=== PATIENT | female | born 1935 | race Hispanic/Latino ===

== ENCOUNTER → 2017-12-14 | Outpatient (CLI) | payer OTHER ==
[~2017-12-14] MED LIST: AEC81 PO; ATOR10 PO; CA C-5 PO; CYAN25002 SL; HYDR12.54 PO; MULT-1258 PO
== END | disposition home or self-care (01) ==
LOC: RAH 08:24
PROVIDERS: ATTEND Internal Medicine
DX: G31.9 Degenerative disease of nervous system, unspecified (principal); G30.0 Alzheimer's disease with early onset
CPT/HCPCS: 70551

== ENCOUNTER 2019-05-11 17:44 | Observation (INO) | payer OTHER ==
[~2019-05-11] VITALS: Ht 157.5 cm; Wt 60.8 kg
[2019-05-11 19:39] LABS: BASOPHILS % (AUTO) 0.1 % (0.0-5.0); HEMATOCRIT 37.4 % (36-48); LYMPHOCYTES % (AUTO) 5.9 % (21.0-51.0); MEAN CORPUSCULAR HEMOGLOBIN 30.8 pg (27.0-33.0); MEAN CORPUSCULAR HGB CONC 33.9 g/dL (32.0-36.0); MEAN CORPUSCULAR VOLUME 90.9 fL (79-99); MONOCYTES % (AUTO) 2.7 % (3.0-13.0); NEUTROPHILS % (AUTO) 91.3 % (40.0-77.0); PLATELET COUNT (AUTO) 161 K/uL (130-400); RED BLOOD CELL COUNT(AUTO) 4.11 MIL/uL (4.00-5.50); RED CELL DISTRIBUTION WIDTH 13.1 % (11.0-15.5); WHITE BLOOD COUNT (AUTO) 13.4 K/uL (4.8-10.8)
[2019-05-11 19:46] LABS: CREATININE 1.3 mg/dL (0.5-1.5); POTASSIUM 3.9 mmol/L (3.5-5.1)
[2019-05-11 19:51] LABS: ALBUMIN 3.6 g/dL (3.5-5.0); BILIRUBIN,TOTAL 0.6 mg/dL (0.2-1.0); TOTAL PROTEIN, SERUM 6.9 g/dL (6.0-8.3)
[2019-05-11 20:00] LABS: INR 0.92 (0.85-1.15); PARTIAL THROMBOPLASTIN TIME 22.7 SEC (26.3-35.5); PROTHROMBIN TIME 9.7 SEC (9.6-11.6)
[2019-05-11] MEDS ORDERED: 1/2 NORMAL SALINE 1,000 ML IV ONE (21:07)
[2019-05-11] MEDS: 1/2 NORMAL SALINE 1,000 ML IV SCH (21:30)
[2019-05-11 23:30] VITALS: BP 155/56
--- NOTE | 2019-05-11 23:30 | NUR ---
ADMISSION PT ADMITTED INTO ROOM 409, AWAKE, ALERT AND RESPONSIVE, NO C/O PAIN OR DISTRESS NOTED. PT FAMILY AT BEDSIDE. PT AND FAMILY ORIENTED TO ROOM, CALL REVELES WITHIN REACH, BED IN LOWEST POSITION. Addendum: 05/11/19 at 2358 by MASON FERNANDEZ RN Amended: Links added.
[2019-05-12] VITALS (13 sets, daily range): BP systolic 106–144; BP diastolic 33–64
[2019-05-12 04:16] LABS: HEMATOCRIT 30.6 % (36-48)
--- NOTE | 2019-05-12 07:45 | NUR ---
NOTE AAOX3. DENIES PAIN OR DISCOMFORT AT THIS TIME. CAME IN FROM HOME YESTERDAY WITH C/O VOMITING BLOOD OR RATHER COFFEE GROUND EMESIS. DR MORRELL STILL TO COME SEE HER TODAY. SHE WILL HAVE SERIAL H/H. LAST HGB WAS IN THE 10'S. FAMILY AT HER SIDE. DENIES ANY ABDOMINAL DISCOMFORT OR PAIN SHE IS ON CLEAR LIQUIDS.
[2019-05-12] MEDS ORDERED: FAMOTIDINE/PF 20 MG/2 ML VIAL IV SCH (09:00)
[2019-05-12] MEDS ORDERED: PANTOPRAZOLE 40 MG/VIAL IVP SCH (09:00)
--- NOTE | 2019-05-12 11:30 | NUR ---
NOTE DR KEITH WAS CONSULTED AND HE CALLED AND ORDERED TO HAVE EGD WITH MAC TODAY. SHE WILL SIGN CONSENT AND MEET DR KEITH DOWNSTAIRS AND PROCEED WITH EGD. FAMILY MADE AWARE OF THIS.
[2019-05-12 11:58] LABS: HEMATOCRIT 31.8 % (36-48)
[2019-05-12] MEDS ORDERED: ERYTHROMYCIN LACTOBIONATE 250 MG in SODIUM CHLORIDE 0.9% 100 ML IV SCH (12:00)
--- NOTE | 2019-05-12 13:38 | NUR ---
OUT OF ROOM FOR EGD AT THIS TIME
[2019-05-12] MEDS ORDERED: LISI-613 PO (13:57)
[2019-05-12] MEDS ORDERED: AMLO5TAB9 PO (13:57)
[2019-05-12] MEDS ORDERED: ACET-2743 PO (13:57)
[2019-05-12] MEDS ORDERED: RIVA4.6T TD (13:57)
--- NOTE | 2019-05-12 16:14 | NUR ---
NOTE BACK FROM EGD STABLE, NO DISTRESS. REFER TO REPORT FOR FINDINGS. SON AT HER SIDE IS TELLING ME HE SPOKE TO DR KEITH AND HE FOUND ULCERS IN THE STOMACH. WILL FOLLOW POST PROCEDURE ORDERS.
[2019-05-12] MEDS: 1/2 NORMAL SALINE 1,000 ML IV SCH (17:30)
--- NOTE | 2019-05-12 18:24 | NUR ---
NOTE CAME BACK FROM EGD AND WAS STABLE FOR A WHILE BUT STARTED TO GET VERY RESTLESS IN BED AND WANTING TO GO HOME. ACCORDING TO HER DAUGHTER IN THE ROOM SHE ONLY LISTENS TO HER SON BUT HE HAS LEFT TO [place]. I SPOKE TO THE PATIENT AND CONVINCED HER THAT SHE NEEDS TO STAY THE NIGHT AND WILL HAVE BLOOD WORK TOMORROW AND POSSIBLY GO HOME IF SHE IS STABLE.
[2019-05-12] MEDS: PANTOPRAZOLE SODIUM 40 MG TABLET.DR PO SCH (20:08)
[2019-05-12 20:44] LABS: HEMATOCRIT 31.5 % (36-48)
[2019-05-13 03:30] VITALS: BP 151/69
[2019-05-13 05:41] LABS: HEMATOCRIT 31.7 % (36-48)
[2019-05-13 08:00] VITALS: BP 124/56
--- NOTE | 2019-05-13 08:00 | NUR ---
NOTE AAOX3. DENIES PAIN OR DISCOMFORT AT THIS TIME. DAUGHTER AT HER SIDE. PATIENT WITHOUT CONFUSION COMPARED TO LAST NIGHT WHEN SHE WAS VERY RESTLESS AND WANTING TO LEAVE AND KEPT WALKING OUT OF ROOM A LITTLE DISORIENTED LOOKING FOR THINGS TO DO. SHE DOES HAVE BEGINNINGS OF DEMENTIA ACCORDING TO HER FAMILY. DENIES ANY N/V AND H/H HAS REMAINED STABLE THROUGHOUT HER STAY. S/P EGD YESTERDAY WITH DR KEITH AND HE RECOMMENDS PROTONIX FOR 8 WEEKS AND FOLLOW UP WITH HIM OUTPATIENT. H PYLORI AG WAS NEGATIVE. POSSIBLE DC HOME TODAY WHEN PORSCHE STOPS BY.
--- NOTE | 2019-05-13 10:00 | NUR ---
NOTE DR MORRELL MADE ROUNDS AND HE IS SENDING PATIENT HOME TODAY.
[2019-05-13] MEDS: PANTOPRAZOLE SODIUM 40 MG TABLET.DR PO SCH (10:12)
[2019-05-13 11:00] VITALS: BP 176/68
--- NOTE | 2019-05-13 11:15 | NUR ---
NOTE DSICHARGE INSTRUCTIONS GIVEN AT THIS TIME. DAUGHTER PRESENT. BOTH VERBALIZED UNDERSTANDING AND PATIENT HAD FORGOTTEN SOME OF THE INSTRUCTIONS BUT DAUGHTER REMINDS HER ABOUT WHAT WAS DISCUSSED SINCE SHE DOES HAVE H/O DEMENTIA. REFER TO DC SUMMARY FOR DETAILS.
== END 2019-05-13 12:49 | disposition home or self-care (01) ==
LOC: EDH 17:44 → EDHIP 21:00 → 4BH 22:56
PROVIDERS: ADMIT Internal Medicine; ATTEND Internal Medicine
DX: K92.0 Hematemesis (principal); D62 Acute posthemorrhagic anemia; K25.4 Chronic or unspecified gastric ulcer with hemorrhage; I38 Endocarditis, valve unspecified; K29.60 Other gastritis without bleeding; K29.80 Duodenitis without bleeding; I10 Essential (primary) hypertension; Z95.2 Presence of prosthetic heart valve; Z79.899 Other long term (current) drug therapy; Z90.710 Acquired absence of both cervix and uterus
CPT/HCPCS: 36415 ×3; 43239; 80053; 82270; 85014 ×4; 85018 ×4; 85025; 85610; 85730; 86677; 96365; 96375; 99284; G0378 ×37; J1364; J3490; 88305; C9113

== ENCOUNTER 2019-06-24 17:57 | Emergency (ER) | payer OTHER ==
[~2019-06-24 17:57] MED LIST changes: +ACET-2743 PO; -AEC81 PO; +AMLO5TAB9 PO; +LISI-613 PO; +RIVA4.6T TD
[2019-06-24] MEDS ORDERED: SODIUM CHLORIDE 0.9% 1000ML 2,000 ML IV ONE (18:21)
[2019-06-24] MEDS ORDERED: ONDANSETRON HCL 4 MG/2 ML VIAL ONE (18:21)
[2019-06-24 18:52] LABS: BASOPHILS % (AUTO) 0.3 % (0.0-5.0); EOSINOPHILS % (AUTO) 0.1 % (0.0-8.0); HEMATOCRIT 36.6 % (36-48); LYMPHOCYTES % (AUTO) 10.5 % (21.0-51.0); MEAN CORPUSCULAR HEMOGLOBIN 29.9 pg (27.0-33.0); MEAN CORPUSCULAR HGB CONC 34.1 g/dL (32.0-36.0); MEAN CORPUSCULAR VOLUME 87.7 fL (79-99); MONOCYTES % (AUTO) 3.8 % (3.0-13.0); NEUTROPHILS % (AUTO) 85.3 % (40.0-77.0); PLATELET COUNT (AUTO) 144 K/uL (130-400); RED BLOOD CELL COUNT(AUTO) 4.17 MIL/uL (4.00-5.50); RED CELL DISTRIBUTION WIDTH 12.3 % (11.0-15.5)
[2019-06-24 19:03] LABS: CREATININE 1.7 mg/dL (0.5-1.5); POTASSIUM 3.2 mmol/L (3.5-5.1)
[2019-06-24 19:08] LABS: ALBUMIN 3.9 g/dL (3.5-5.0); BILIRUBIN,TOTAL 1.3 mg/dL (0.2-1.0); TOTAL PROTEIN, SERUM 7.2 g/dL (6.0-8.3)
== END 2019-06-24 20:48 | disposition home or self-care (01) ==
LOC: EDH 17:57
DX: R11.2 Nausea with vomiting, unspecified (principal); I10 Essential (primary) hypertension; G30.9 Alzheimer's disease, unspecified; Z90.710 Acquired absence of both cervix and uterus
CPT/HCPCS: 36415; 71045; 80053; 83690; 84484; 85025; 93005; 96361; 96374; 99284; J2405; J7030

== ENCOUNTER 2019-07-01 15:26 | Emergency (ER) | payer OTHER ==
[2019-07-01 16:05] LABS: BASOPHILS % (AUTO) 0.4 % (0.0-5.0); EOSINOPHILS % (AUTO) 0.3 % (0.0-8.0); HEMATOCRIT 40.3 % (36-48); LYMPHOCYTES % (AUTO) 11.5 % (21.0-51.0); MEAN CORPUSCULAR HEMOGLOBIN 29.9 pg (27.0-33.0); MEAN CORPUSCULAR HGB CONC 33.4 g/dL (32.0-36.0); MEAN CORPUSCULAR VOLUME 89.3 fL (79-99); MONOCYTES % (AUTO) 4.4 % (3.0-13.0); NEUTROPHILS % (AUTO) 83.4 % (40.0-77.0); PLATELET COUNT (AUTO) 180 K/uL (130-400); RED BLOOD CELL COUNT(AUTO) 4.51 MIL/uL (4.00-5.50); RED CELL DISTRIBUTION WIDTH 12.8 % (11.0-15.5); WHITE BLOOD COUNT (AUTO) 13.6 K/uL (4.8-10.8)
[2019-07-01 16:06] LABS: APPEARANCE,URINE CLEAR (CLEAR); BILIRUBIN,URINE NEGATIVE (NEGATIVE); COLOR,URINE YELLOW (YELLOW); GLUCOSE, URINE (UA) NEGATIVE (NEGATIVE); KETONES,URINE 5 mg/dL (NEGATIVE); LEUKOCYTE ESTERASE ,URINE TRACE (NEGATIVE); NITRATE,URINE NEGATIVE (NEGATIVE); OCCULT BLOOD,URINE NEGATIVE (NEGATIVE); PH,URINE 7.5 (5.0-8.0); PROTEIN,URINE TRACE mg/dL (NEGATIVE); UROBILINOGEN,URINE 0.2 mg/dL (0.2-1.0)
[2019-07-01 16:19] LABS: RBC,URINE 0-1 /HPF (0-1)
[2019-07-01 16:20] LABS: BACTERIA,URINE Few /HPF (None Seen); SQUAMOUS EPITHELIAL CELL,UR Rare /HPF (0-2); TRANSITIONAL EPI CELLS,URINE Rare /HPF (None Seen)
[2019-07-01 16:26] LABS: B-TYPE NATRIURETIC PEPTIDE 84 pg/mL (0-100)
[2019-07-01 16:27] LABS: INR 0.93 (0.85-1.15); PARTIAL THROMBOPLASTIN TIME 24.6 SEC (26.3-35.5); PROTHROMBIN TIME 9.8 SEC (9.6-11.6)
[2019-07-01 16:28] LABS: CREATININE 1.5 mg/dL (0.5-1.5); POTASSIUM 3.5 mmol/L (3.5-5.1)
[2019-07-01 16:42] LABS: ALBUMIN 3.7 g/dL (3.5-5.0); BILIRUBIN,TOTAL 0.7 mg/dL (0.2-1.0); TOTAL PROTEIN, SERUM 7.1 g/dL (6.0-8.3)
[2019-07-01] MEDS ORDERED: CEFTRIAXONE SODIUM 1 GM ONE (17:14)
[2019-07-01] MEDS ORDERED: SODIUM CHLORIDE 0.9% 1000ML 1,000 ML IV ONE (17:14)
[2019-07-01] MEDS ORDERED: SODIUM CHLORIDE 0.9% 100 ML IV ONE (17:15)
== END 2019-07-01 18:31 | disposition home or self-care (01) ==
LOC: EDH 15:26
DX: K52.9 Noninfective gastroenteritis and colitis, unspecified (principal); E86.0 Dehydration; N39.0 Urinary tract infection, site not specified; I10 Essential (primary) hypertension; G30.9 Alzheimer's disease, unspecified; F02.80 Dementia in other diseases classified elsewhere, unspecified severity, without behavioral disturbance, psychotic disturbance, mood disturbance, and anxiety; Z90.710 Acquired absence of both cervix and uterus
CPT/HCPCS: 36415; 71045; 80053; 81001; 82150; 82550; 83605; 83690; 83880; 84484; 85025; 85610; 85730; 87040 ×2; 87088; 87804 ×2; 93005; 96361; 96374; 99284; J0696; J7030

== ENCOUNTER → 2022-01-06 | Outpatient (CLI) | payer MEDICARE ==
[~2022-01-06] MED LIST changes: +AMLO-257 PO; -AMLO5TAB9 PO; -LISI-613 PO; +LISI20TA24 PO
== END | disposition home or self-care (01) ==
LOC: RAH 14:27
PROVIDERS: ATTEND Internal Medicine
DX: G30.9 Alzheimer's disease, unspecified (principal)
CPT/HCPCS: 70551

== ENCOUNTER → 2023-01-04 | Outpatient (CLI) | payer MEDICARE | END | disposition home or self-care (01) | LOC: RAH 09:23 | PROVIDERS: ATTEND Internal Medicine | DX: I70.0 Atherosclerosis of aorta (principal); I10 Essential (primary) hypertension; I35.0 Nonrheumatic aortic (valve) stenosis; R06.02 Shortness of breath | CPT/HCPCS: 71046 ==

== ENCOUNTER → 2024-08-09 | Outpatient (CLI) | payer MEDICARE ==
--- NOTE | 2024-08-09 12:34 | HMCIMG ---
CT ABDOMEN/PELVIS W/O CONTRAST HISTORY: Gross hematuria COMPARISON: None TECHNIQUE: Multiple sequential axial images of the abdomen and pelvis were obtained from the dome of the diaphragm through symphysis pubis. Patient was not given contrast through intravenous route. Oral contrast was not given. FINDINGS: No pleural effusion is seen bilaterally. There is no evidence of parenchymal disease or pulmonary nodule of the visualized lower lungs. Degenerative changes of the thoracolumbar spine are present. The heart is not enlarged. Liver measures 9.5 cm. The liver, spleen, adrenal glands and pancreas are unremarkable. There is no evidence of hydronephrosis bilaterally. There are bilateral parapelvic renal cysts mostly on the left. Evaluation limited due to lack of intravenous contrast. No evidence of renal stone is seen. There is diverticulosis. Fecal material is seen in the colon. There are normal size retroperitoneal and mesenteric lymph nodes. No ascites is seen. Atherosclerotic changes are present. No CT evidence of acute appendicitis is seen. Pelvic sidewalls are symmetric bilaterally. Bladder is poorly distended. IMPRESSION: 1. No ascites. Diverticulosis. Fecal material in the colon. No hydronephrosis. Parapelvic renal cysts. CT was performed with one or more following dose reduction techniques: automated exposure control, adjustment of the mA and kv according to patient's size, or use of a iterative reconstruction technique.
== END | disposition home or self-care (01) ==
LOC: RAH 10:29
PROVIDERS: ATTEND Internal Medicine
DX: N28.1 Cyst of kidney, acquired (principal); N20.0 Calculus of kidney; R31.0 Gross hematuria; R20.0 Anesthesia of skin; M47.815 Spondylosis without myelopathy or radiculopathy, thoracolumbar region; I70.0 Atherosclerosis of aorta; K57.90 Diverticulosis of intestine, part unspecified, without perforation or abscess without bleeding
CPT/HCPCS: 74176

== ENCOUNTER 2024-08-13 20:33 | Emergency (ER) | payer MEDICARE ==
[~2024-08-13] VITALS: Ht 160 cm; Wt 62.6 kg
--- NOTE | 2024-08-13 21:40 | HMCIMG ---
-FEMUR 2VW RIGHT HISTORY: Status post fall COMPARISON: None TECHNIQUE: 4 images of right femur were obtained. FINDINGS: There is no acute displaced fracture or dislocation. Vascular calcifications are seen. Surgical elba are seen in the right groin. Degenerative changes are seen. IMPRESSION: 1. Findings as described above.
--- NOTE | 2024-08-13 21:44 | HMCIMG ---
KNEE 3VWS RT HISTORY: Status post fall COMPARISON: None TECHNIQUE: 3 images of right knee were obtained. FINDINGS: There is no acute displaced fracture or dislocation. Vascular calcifications are seen. Degenerative changes are seen. IMPRESSION: 1. Findings as described above.
--- NOTE | 2024-08-13 21:44 | HMCIMG ---
HIP BILAT 3-4VW REASON: FALL, INJURY, SWELLING. COMPARISON: None TECHNIQUE: 2 images of bilateral hips were obtained. FINDINGS: Bilateral hip joint space narrowing is seen. Surgical elba are seen in the right groin. There is no acute displaced fracture or dislocation. IMPRESSION: Findings as described above.
--- NOTE | 2024-08-13 21:53 | ERN ---
General Chief Complaint: Mechanical Fall Stated Complaint: FALL Time Seen by MD: 20:43 History of Present Illness Initial Comments Mrs Bennett is an 88-year-old female with significant past medical history of essential hypertension, severe dementia, hyperlipidemia vitamin-D deficiency who comes in today with a chief complaint of knee pain. Patient apparently fell and hit her knee. Patient has minor pain. Allergies: Coded Allergies: No Known Allergies (Unverified Allergy, Unknown, 06/24/19) No Known Drug Allergies (Unverified Allergy, Unknown, 06/24/19) Home Meds Reported Medications Rivastigmine (Exelon 4.6 mg/24 Hr) 1 Patch Patch, 1 PATCH TD DAILY, ADH.PATCH 05/12/19 Acetaminophen (Tylenol Extra Strength) 500 Mg Tablet, 500 MG PO AD PRN for PAIN LEVEL 1 TO 5, TAB 05/12/19 Lisinopril (Lisinopril) 20 Mg Tablet, 20 MG PO BID, TAB 05/12/19 Amlodipine Besylate (Amlodipine Besylate) 5 Mg Tablet, 5 MG PO DAILY, TAB 05/12/19 Hydrochlorothiazide (Hydrochlorothiazide) 12.5 Mg Tablet, 12.5 MG PO DAILY, TAB 09/24/16 Ca Carb/D3/Mag Ox/Case Resource Manager/Connor/Zn (Caltrate+D3 Plus Mineral Minis) 1 Each Tablet, 1 EACH PO DAILY, TAB 09/24/16 Cyanocobalamin (Vitamin B-12) (Vitamin B-12) 2,500 Mcg Tab.subl, 2500 MCG SL DAILY, TAB.SL 09/24/16 Atorvastatin Calcium (LIPITOR) 20 Mg Tab, 20 MG PO HS, TAB 09/15/16 Multivits-Min/FA/Lycopene/Lut (Centrum Silver Tablet) 1 Each Tablet, 1 EACH PO DAILY, TAB 09/13/16 Past Medical History Past Medical History: Dementia, High Cholesterol, Hypertension, Other Medical History Other: STOMACH ULCER, HEART VALVE REPLACEMENT Past Surgical History: Hysterectomy, Other Surgical History Other: HEART VALVE REPLACEMENT ROS Dictation ROS can not be done given patient's severe dementia Physical Exam Physical Exam Dictation General: Pleasantly confused elderly female who appears in no acute distress Head/Face: Normocephalic, atraumatic Eyes: PERRL, ENT: oral cavity clear, Neck: Trachea midline, supple, Cardiovascular: RRR, normal Respiratory: CTAB, no respiratory distress Abdomen: Soft, non-tender, non-distended, Skin: Warm, dry, normal turgor, no rash MS/Extremity: Pulses equal, no cyanosis, right knee is without swelling, negative valgus and vargus Neuro: COAx2 MDM Review of imaging shows no acute fracture. Patient has degenerative joint disease. Advised family to consider Tylenol ibuprofen as needed p.r.n. as well as other conservative measures such as heating pads. MDM: Differential diagnosis: Mechanical fall Rationale: Tests considered and ordered secondary to shared decision making include: Previous outside records reviewed: Old ER visits. Risk of complication and/or morbidity or mortality of patient management: None Medications-Per medication reconciliation Need for hospitalization: Patient does not meet criteria for hospitalization. Need for emergency major/minor surgery: No There are no social concerns with this patient. Prescription drug management Prescriptions will include symptomatic care Patient's prior external medical records from other ER visits were reviewed by me as indicated. Prior testing and results from previous visits were reviewed. Prior tests were taken into account with medical decision making and resource utilization, independent historian/historians were used to obtain complete medical history. I independently interpreted the test that were performed, results were reviewed by me and considered findings on radiology if ordered. Medical management and examination interpretation discussions were had by me with other qualified healthcare professionals as indicated for the patient's care. ED Course Orders Procedure Category Date Status Time Knee 3vws Rt RAD 08/13/24 Resulted 20:45 Hip Bilat 3-4vw RAD 08/13/24 Resulted 20:45 Femur 2vw Right RAD 08/13/24 Resulted 20:45 Vital Signs Date Time Temp Pulse Resp B/P (MAP) Pulse Ox O2 Delivery O2 Flow Rate FiO2 08/13/24 20:36 97.9 60 18 149/73 Nonrebreathing Mask 0 DX & DISP Disposition: Discharge Departure Impression: Primary Impression: Fall Condition: Stable Additional Instructions: Please follow up with your primary care physician in the next 1-7 days for continuance of care. Please use Tylenol/ibuprofen in alternating fashion for your knee pain. Referrals: JUSTINO SOTO MD (PCP) CHIOMA CARRION MD Aug 13, 2024 21:53
[2024-08-13 22:30] VITALS: BP 136/72; PULSE 64; RESP 18; TEMP 98; O2SAT 97
== END 2024-08-13 22:36 | disposition home or self-care (01) ==
LOC: EDH 20:33
DX: M25.561 Pain in right knee (principal); E78.00 Pure hypercholesterolemia, unspecified; F03.C0 Unspecified dementia, severe, without behavioral disturbance, psychotic disturbance, mood disturbance, and anxiety; I10 Essential (primary) hypertension; Z79.899 Other long term (current) drug therapy; Z90.710 Acquired absence of both cervix and uterus; Z95.2 Presence of prosthetic heart valve; W18.39XA Other fall on same level, initial encounter; Y93.89 Activity, other specified; Y92.89 Other specified places as the place of occurrence of the external cause; Y99.8 Other external cause status
CPT/HCPCS: 73522; 73552; 73562; 99284